=== PATIENT | male | born 1980 | race Caucasian/White ===

== ENCOUNTER 2018-11-09 16:15 | Emergency (ER) | payer MEDICAID ==
[2018-11-09] MEDS: TRIMETHOPRIM/SULFAMETHOX (DS) TAB PO (16:54)
[2018-11-09] MEDS ORDERED: ONDANSETRON 4 MG INJ IV (18:26)
== END 2018-11-09 17:15 | disposition home or self-care (01) ==
LOC: FTE 16:15
DX: L03.116 Cellulitis of left lower limb (principal)
CPT/HCPCS: 99283; Z7502

== ENCOUNTER 2018-11-26 12:45 | Emergency (ER) | payer MEDICAID ==
[2018-11-26] MEDS ORDERED: CLINDAMYCIN 300 MG CAP PO (16:00)
== END 2018-11-26 18:25 | disposition home or self-care (01) ==
LOC: E/R 12:45
DX: L03.115 Cellulitis of right lower limb (principal); Z87.891 Personal history of nicotine dependence
CPT/HCPCS: 93971; 99284-25